=== PATIENT | female | born 1955 | race Caucasian/White ===

== ENCOUNTER 2016-04-28 20:06 | Emergency (ER) | payer SELFPAY ==
--- NOTE | 2016-04-28 20:48 | ED Physician Documentation ---
Fall - HISTORIAN Historian: patient, paramedics - HPI Stated Complaint: left hip pain Chief Complaint: Fall Additional Information: Says she slipped on wet floor in bathroom at [facility]. Walked out of stall and called EMS because left hip hurt. EMS reports dry clothes, patient bearing weight on left leg. Onset: just prior to arrival Associated Symptoms:: no loss of consciousness - ROS CONST: no problems - PAST HX Past History: diabetes Type 2, other (appendectomy) Allergies/Adverse Reactions: Allergies Allergy/AdvReac Type Severity Reaction Status Date / Time No Known Allergies Allergy Verified 04/28/16 20:13 Home Medications: Ambulatory Orders Medication Instructions Recorded Hydrochlorothiazide [Hydrodiuril] 12.5 mg PO QDAY 04/28/16 Levothyroxine Sodium [Synthroid] 112 mcg PO QDAY 04/28/16 Lisinopril [Prinivil] 20 mg PO QD 04/28/16 Lovastatin [Altoprev] 40 mg PO 7HS 04/28/16 Metformin HCl [Metformin HCl ER] 1,000 mg PO BID 04/28/16 gliPIZIDE [Glucotrol] 5 mg PO BID 04/28/16 - SOCIAL HX Smoking History: non-smoker - FAMILY HX Family History: no significant history - VITAL SIGNS Vital Signs: Vital Signs Temp Pulse Resp BP Pulse Ox 81 16 130/72 96 04/28/16 20:15 04/28/16 20:15 04/28/16 20:15 04/28/16 20:15 - REVIEWED ASSESSMENTS Nursing Assessment Reviewed: Yes Vitals Reviewed: Yes Progress - Progress Progress: AP pelvis and two views left hip HISTORY: Left hip pain after fall FINDINGS: The left hip and osseous pelvis are intact without fracture, dislocation, arthropathy, or focal bone lesion. Electronically signed on Apr 28, 2016 8:41:30 PM FINANCIAL EXAMINER by: Jean Rey Plans to return to [facility]. ED Results Lab/Radiology - Orders Orders: ED Orders Category Date Time Status LT HIP 2VIEW COMPLETE [RAD] Stat Exams 04/28/16 Ordered PELVIS AP 1 OR 2 VIEWS [RAD] Stat Exams 04/28/16 Ordered Fall Physical Exam - Physical Exam General Appearance: alert, mild distress Head: non-tender, no obvious injury Neck: painless ROM Eye: NANCI, lids & conjunct. nml ENT: nml external inspection, no oral injury, airway nml Resp/CVS: chest non-tender, breath sounds nml, heart sounds nml Abdomen: soft, normal bowel sounds, non-tender Neuro: CN's nml as tested, sensation nml, motor nml, reflexes nml Skin: color nml, no rash, dry Back: normal inspection, no CVA tenderness, no vertebral tenderness Extremities: pelvis stable, other (tender t opalpation over mid left post SI) Joint: joints nml, nml ROM Discharge Clincal Impression: Contusion of left hip Qualifiers: Encounter type: initial encounter Qualified Code(s): S70.02XA - Contusion of left hip, initial encounter Additional Instructions: You can take Tylenol or ibuprofen if needed for discomfort. You can also apply ice to the sore area for 320 minutes of each hour you are awake for two days. Home Medications: Ambulatory Orders Hydrochlorothiazide [Hydrodiuril] 12.5 mg PO QDAY 04/28/16 Levothyroxine Sodium [Synthroid] 112 mcg PO QDAY 04/28/16 Lisinopril [Prinivil] 20 mg PO QD 04/28/16 Lovastatin [Altoprev] 40 mg PO 7HS 04/28/16 Metformin HCl [Metformin HCl ER] 1,000 mg PO BID 04/28/16 gliPIZIDE [Glucotrol] 5 mg PO BID 04/28/16 Condition: Good Disposition: 01 HOME, SELF-CARE Decision to Admit: NO Decision Time: 20:50
[2016-04-28 21:19] VITALS: BP 172/70
--- NOTE | 2016-04-29 07:25 | Diagnostic Imaging Report ---
[facility] [address] [facility].[address] [id number] Report Submission Date: Apr 28, 2016 8:41:30 PM CRANE OILER Patient Study Name: CRISTY MCELROY Date: Apr 28, 2016 8:23:57 PM CRANE OILER Modality Type: CR Gender: F Description: PELVIS : 55 Institution: [facility] Physician: RACHAEL PILLAI - ER AP pelvis and two views left hip HISTORY: Left hip pain after fall FINDINGS: The left hip and osseous pelvis are intact without fracture, dislocation, arthropathy, or focal bone lesion. Electronically signed on Apr 28, 2016 8:41:30 PM CRANE OILER by: Jean LE
== END 2016-04-28 21:10 | disposition home or self-care (01) ==
LOC: ED 20:06
DX: S70.02XA Contusion of left hip, initial encounter (principal); X58.XXXA Exposure to other specified factors, initial encounter; Y93.9 Activity, unspecified; Y99.9 Unspecified external cause status
CPT/HCPCS: 99283